=== PATIENT | female | born 1990 | race American Indian/Alaskan Native ===

== ENCOUNTER 2019-03-27 18:03 | Emergency (ER) | payer OTHER ==
--- NOTE | 2019-03-27 18:12 | Event Note ---
ED Screening Note Date of service: 03/27/19 Time: 18:09 ED Screening Note: This is a 28 y.o. F. that presents to the ER with sensation of coating over right eye. Initially there was swelling which improved but visual changes. She wear glasses but denies contact use. LMP 03/10/2019 This initial assessment/diagnostic orders/clinical plan/treatment(s) is/are subject to change based on patients health status, clinical progression and re- assessment by fellow clinical providers in the ED. Further treatment and workup at subsequent clinical providers discretion. Patient/guardian urged not to elope from the ED as their condition may be serious if not clinically assessed and managed. Initial orders include: ACC for evaluation
--- NOTE | 2019-03-27 21:53 | Emergency Department Report ---
ED Headache HPI - General Chief Complaint: Eye Problems Stated Complaint: R EYE PAIN/BLURRY VISION Time Seen by Provider: 03/27/19 18:09 - History of Present Illness Initial Comments: This is a 28-year-old female here reports that this she has blurred vision 3 days. She wears glasses. Denies any trauma. Denies any scratching to eye or eye pain. Denies any drainage from eyes. She reports today she has a cold at over I on the right side. She is also reporting headache on the right side. Pain is 6 out of 10 and pulsating. Denies any nausea vomiting, dizziness, fever or chills., Chest pain. Denies any cough, nasal congestion or runny nose. Timing/Duration: waxing and waning, other (3 days) Quality: moderate, other (pulsating ) Head Injury Location: frontal, temporal Recent Head Trauma: occasional headaches Modifying Factors: improves with: rest Associated Symptoms: vision changes. denies: confusion, fatigue, facial pain, fever/chills, flushing, loss of consciousness, nausea/vomiting, nasal congestion, nasal drainage, numbness in legs/feet, rash, seizures, sinus infection, stiff neck, weakness Allergies/Adverse Reactions: Allergies aspirin Allergy (Verified 03/27/19 18:07) Swelling Home Medications: Ambulatory Orders Acetaminophen/Codeine [Tylenol /Codeine # 3 tab] 1 tab PO Q8H PRN #6 tab 03/28/19 ED Review of Systems ROS: Stated complaint: R EYE PAIN/BLURRY VISION Other details as noted in HPI Constitutional: denies: chills, fever Eyes: vision change (blurred vision right eye). denies: eye pain, eye discharge ENT: denies: ear pain, throat pain, congestion Respiratory: denies: cough, shortness of breath, SOB with exertion, wheezing Cardiovascular: denies: chest pain, palpitations, edema, syncope Gastrointestinal: denies: abdominal pain, nausea, vomiting Genitourinary: denies: dysuria, hematuria Musculoskeletal: denies: back pain, joint swelling, arthralgia, myalgia Skin: denies: rash Neurological: headache. denies: weakness, numbness, paresthesias, confusion, abnormal gait, vertigo ED Past Medical Hx - Past Medical History Previous Medical History?: No - Surgical History Past Surgical History?: No - Family History Family history: no significant - Social History Smoking Status: Never Smoker Substance Use Type: Alcohol - Medications Home Medications: Home Medications Medication Instructions Recorded Confirmed Last Taken Type Acetaminophen/Codeine [Tylenol 1 tab PO Q8H PRN #6 tab 03/28/19 Unknown Rx /Codeine # 3 tab] ED Physical Exam - General Limitations: No Limitations General appearance: alert, in no apparent distress - Head Head exam: Present: atraumatic, normocephalic, normal inspection - Eye Eye exam: Present: normal appearance, PERRL, EOMI. Absent: scleral icterus, conjunctival injection, nystagmus, periorbital swelling, periorbital tenderness Pupils: Present: normal accommodation - Expanded Eye Exam Expanded Eyelids: Normal Inspection: Right (and left) Pupils: Regular, Round: Bilateral, Reactive: Bilateral Sclera/Conjunctival: Normal Inspection: Bilateral Anterior chamber: Normal Inspection: Bilateral Posterior chamber: Normal Inspection: Bilateral Visual acuity (R) = 20/: 40 Visual acuity (L) = 20/: 40 With correction: Yes - ENT ENT exam: Present: normal exam, normal orophraynx, mucous membranes moist, TM's normal bilaterally - Neck Neck exam: Present: normal inspection, full ROM. Absent: tenderness, lymphadenopathy - Respiratory Respiratory exam: Present: normal lung sounds bilaterally. Absent: respiratory distress, chest wall tenderness - Cardiovascular Cardiovascular Exam: Present: regular rate, normal rhythm, normal heart sounds (14 and 44) - Extremities Exam Extremities exam: Present: normal inspection, full ROM, normal capillary refill, other (No cce. + 2 pulses in all extremities, no neurovascular compromise). Absent: tenderness - Back Exam Back exam: Present: normal inspection, full ROM - Neurological Exam Neurological exam: Present: alert, oriented X3, normal gait, reflexes normal, other (no focal neurological deficit). Absent: motor sensory deficit - Psychiatric Psychiatric exam: Present: normal affect, normal mood - Skin Skin exam: Present: warm, dry, intact, normal color. Absent: rash (mean of 1) ED Course Vital Signs 03/27/19 18:09 Pulse Rate 70 Respiratory 16 Rate Blood Pressure 135/65 [Right] O2 Sat by Pulse 99 Oximetry - Reevaluation(s) Reevaluation #1: 03/28/19 00:12 Patient stable throughout ED course. Neurological exam normal. CT scan of the head without contrast with no acute findings. Patient with visual acuity at 204 ED Medical Decision Making - Radiology Data Radiology results: report reviewed CT scan of the head without contrast dictated by radiologist report reviewed by myself. Please see detailed below Findings [facility] [address] [place] [address] Cat Scan Report Signed Patient: KIP WRAY MR#: [id number] : 1990 Acct:[id number] Age/Sex: 28 / F ADM Date: 03/27/19 Loc: ED Attending Dr: Ordering Physician: NACHO SANTOS Date of Service: 03/27/19 Procedure(s): CT head/brain wo con Accession Number(s): [id number] cc: NACHO SANTOS CT head without contrast INDICATION : blurred vision right eye with headache. TECHNIQUE: Axial imaging performed from the skull apex through the skull base without the use of contrast. All CT scans at this location are performed using CT dose reduction for ALARA by means of automated exposure control. COMPARISON: None FINDINGS: Parenchyma: No acute intracranial hemorrhage or parenchymal abnormality. Ventricles: Ventricles are normal in size and appear symmetric. Soft tissues: Soft tissues including the orbits appear normal. Bones: No acute osseous abnormality. Sinuses: Sinuses and mastoid air cells are clear. IMPRESSION: No acute abnormality. Signer Name: José Barnes MD Signed: 03/27/2019 10:44 PM Workstation Name: [id number] Transcribed By: JW Dictated By: José Barnes MD Electronically Authenticated By: José Barnes MD Signed Date/Time: 03/27/192243 DD/ 43 TD/TT: - Medical Decision Making Patient found to have a headache that has resolved., Blurred vision and will be referred to ophthalmology. Visual acuity is stable at 20/40 with glasses I discussed with her her CT scan results, diagnosis and treatment plan and she agreed. She stable and in no acute distress. Critical care attestation.: If time is entered above; I have spent that time in minutes in the direct care of this critically ill patient, excluding procedure time. ED Disposition Clinical Impression: Refraction disorder Headache Qualifiers: Headache type: unspecified Headache chronicity pattern: acute headache Intractability: not intractable Qualified Code(s): R51 - Headache Disposition: DC-01 TO HOME OR SELFCARE Is pt being admited?: No Does the pt Need Aspirin: No Condition: Stable Instructions: Acute Headache (ED), Refractive Errors of the Eye (ED) Additional Instructions: Please follow-up with your commissary steward on Friday for detailed eye exam. See alternative commissary steward if he cannot get in with your personal commissary steward If condition worsens return to the emergency room Prescriptions: Acetaminophen/Codeine [Tylenol /Codeine # 3 tab] 1 tab PO Q8H PRN #6 tab PRN Reason: headache [facility] ZEHRA [Primary Care Provider] - 03/29/19 CASSANDRA MORALES MD [Staff Physician] - 03/29/19 Forms: Work/School Release Form(ED)
--- NOTE | 2019-03-27 22:49 | Cat Scan Report ---
CT head without contrast INDICATION : blurred vision right eye with headache. TECHNIQUE: Axial imaging performed from the skull apex through the skull base without the use of con trast. All CT scans at this location are performed using CT dose reduction for ALARA by means of aut omated exposure control. COMPARISON: None FINDINGS: Parenchyma: No acute intracranial hemorrhage or parenchymal abnormality. Ventricles: Ventricles are normal in size and appear symmetric. Soft tissues: Soft tissues including the orbits appear normal. Bones: No acute osseous abnormality. Sinuses: Sinuses and mastoid air cells are clear. IMPRESSION: No acute abnormality. Signer Name: José Barnes MD Signed: 03/27/2019 10:44 PM Workstation Name: [id number]
[2019-03-28 00:30] VITALS: BP 106/60
== END 2019-03-28 00:29 | disposition home or self-care (01) ==
LOC: ED 18:03
DX: H52.7 Unspecified disorder of refraction (principal); Z88.6 Allergy status to analgesic agent
CPT/HCPCS: 70450